=== PATIENT | male | born 1985 | race Caucasian/White ===

== ENCOUNTER 2017-01-10 12:20 | Emergency (ER) | payer BC ==
[2017-01-10 12:37] VITALS: RESP 14; TEMP 96.8
[2017-01-10] MEDS ORDERED: IPRATROPIUM/ALBUTEROL SULFATE 3 ML NEB NEB ONE (12:48)
--- NOTE | 2017-01-10 14:27 | DI ---
PA /LATERAL CHEST X-RAY, 01/10/2017 12:48 PM : Clinical History: Cough. Wheezing. Previous Exam: None at this facility. There is no acute soft tissue or bony abnormality. Heart size is normal. Lungs are clear. Mediastinal structures are normal. There are no pulmonary nodules. Reading: Normal chest x-ray.
--- NOTE | 2017-01-10 20:18 | PDOC ---
Upper Respiratory HPI - General Chief Complaint: Cough / URI Stated Complaint: cough, easily winded, wheezing x7 days Date Seen by Provider: 01/10/17 Time Seen by Provider: 12:25 Source: POSITIVE: Patient Exam Limitations: POSITIVE: No limitations Nurse's Notes Reviewed & Considered: Yes - History of Present Illness Initial Comments: The patient is a 31-year-old male. He presents to the emergency room complaining of an 8 day history of cough with some wheezing. He states his symptoms have been worse for the past 4-5 days. No known fevers or chills. Cough is productive of yellowish mucoid sputum. Patient chews tobacco but does not smoke tobacco. No chest pain. Some dyspnea with exertion. Timing: REPORTS: Constant Duration: >1 week (8 days) Severity: Moderate Quality: REPORTS: Other (No pain anywhere) Context: DENIES: Recent Foreign Travel, Insect Bite, Tick Bite, Multiple Pt's w / Same Sx, Recent Chemotherapy, Other Modifying Factors: improves with: Coughing Associated Symptoms: REPORTS: Cough, Productive Cough (Productive of mucoid sputum), Shortness of Breath (Some wheezing). DENIES: Fever, Chills, Sweating, Earache, Runny Nose, Sinus Pain, Sinus Drainage, Sore Throat, Hoarseness, Allergy, Hay Fever, Chest Pain, Bloody Cough, Hurts to Breathe, Headache, Other Similar Symptoms Previously: No Recently seen/treated/hospitalized: No Any Prior Injuries Related to Current Complaint?: No - Patient Home Medications Home Medications: Home Medications Albuterol 17 gm IH Q4H PRN #1 aer.refill 01/10/17 Azithromycin 250 mg PO DAILY #6 tab 01/10/17 - Patient Allergies Allergies/Adverse Reactions: Allergies Allergy/AdvReac Type Severity Reaction Status Date / Time No Known Drug Allergies Allergy NOT Verified 01/10/17 12:29 APPLICABLE Past Medical History - heen HEENT History: Denies History Cardiovascular History: Denies History Respiratory History: Denies History Gastrointestinal History: Denies History Genitourinary History: Denies History Endocrine History: Denies History Musculoskeletal History: Denies History Neurological History: Denies History Blood Disorders: Denies History Psychiatric History: Denies History History of Sexually Transmitted Diseases: No Male Reproductive History: Denies History Cancer History: Denies History In Past Year Been Physically Harmed or Verbally Threatened: No History of MDRO: No History of Other Communicable Diseases: No Tobacco Use: Never Smoker Alcohol Use: None Substance Use Type: None Previous Surgical History: No Significant Family History: No pertinent family hx Past Medical History Reviewed: Reviewed - No Changes ROS - Limitations ROS Limitations: No Limitations Constitution: REPORTS: Denies Symptoms Cardiovascular: REPORTS: Denies Cardiac Symptoms Respiratory: REPORTS: Cough Productive, Wheezing Neurological: REPORTS: Denies Neuro Symptoms Gastrointestinal: REPORTS: Denies GI Symptoms Endocrine: REPORTS: Denies Symptoms Musculoskeletal: REPORTS: Denies MS Symptoms Genitourinary: REPORTS: Denies Symptoms Eyes: REPORTS: Denies Symptoms ENT: REPORTS: Denies Symptoms Skin: REPORTS: Denies Skin Symptoms Lympathic: REPORTS: Denies Lympathic Symptoms Immunologic: POSITIVE: Denies Symptoms Psychiatric: POSITIVE: Denies Psych Symptoms Upper Respiratory/Fever Exam - General Appearance General Appearance: REPORTS: Alert, Cooperative, No Acute Distress, No Evidence of Trauma - HEENT HEENT: POSITIVE: Head Inspection Nml, Eyes Inspection Nml, Ears Inspection Nml, Nose Inspection Nml, Oral/Dental Inspect. Nml, Pharynx Inspect. Nml, PERRL, EOMI - Neck Neck: REPORTS: Normal Inspection, Supple - Respiratory Respiratory: REPORTS: No Respiratory Distress, Speaks Full Sentences, Wheezes, Rhonchi. DENIES: Breath Sounds Normal, No Pleuritic Chest Pain, No Pain on Inspiration, Respiratory Distress, Fatigue, Rales, Prolonged Expirations, Accessory Muscle Use, Retractions, Splinting, Dull on Percussion, Decreased Air Movement, Chest Wall Tenderness, Speaks Broken Sentences, Stridor, Respiratory Failure - Abdomen Abdomen: Soft: (All Quadrants), Normal Bowel Sounds: (All Quadrants), Denies Tenderness: (All Quadrants), No Splenomegaly: (All Quadrants), No Hepatomegaly: (All Quadrants), No Guarding: (All Quadrants), No Rebound: (All Quadrants), No Palpable Pulse: (All Quadrants), No Palpabale Mass: (All Quadrants), No Distention: (All Quadrants), No Rigidity: (All Quadrants) - Cardiovascular Cardiovascular: REPORTS: Regular Rate and Rhythm, Heart Sounds Normal, Equal Pulses, Strong Pulses, No Murmur, No Gallop, No Friction Rub, No JVD Peripheral Pulses: Radial (R): 2+, Radial (L): 2+ - Skin Skin: REPORTS: Intact, Normal For Race, Warm, Dry, No Rash - Extremities Extremity: Non-Tender: (All Extremities), Normal ROM: (All Extremities), Normal Inspection: (All Extremities) - Neurological / Psychological Neurological: POSITIVE: Oriented X3, information and data architect analyst Normal As Tested, Motor Normal, Sensation Normal, 5, 6 Upper Resp/Fever Progress - Results Reviewed by me Xrays/CTs/US Reviewed by me: Yes Discussed with Radiologist: Yes Radiology Findings: Chest x-ray normal - Patient's Progress Pain Medication Addressed: POSITIVE: Not Applicable School/Work Release Addressed: POSITIVE: Not Applicable Re-Examine Time: 13:25 Re-Examine Comment: Good clearing of wheezing with albuterol nebulizer treatment. Status: POSITIVE: Improved, Re-Examined Air Movement: Good Antibiotics Given: Yes (Zithromax) Nebulizer Treatment Given:: Yes (DuoNeb) - Consult RX Given: Yes (Z-Nate, albuterol inhaler) Patient Care Time - Estimated PCT Patient Care Time (In Minutes): 25 Vital Signs - Recent Vital Signs Vital Signs: Vital Signs (Last 8 hours) Temp Pulse Resp BP Pulse Ox 01/10/17 12:20 96.8 F 66 14 134/99 97 - VS Reviewed Vital Signs Reviewed: Yes Discharge Clinical Impression: Asthmatic bronchitis Discharge Disposition: Discharged to Home Condition: Stable Prescriptions / Orders: Albuterol 17 gm IH Q4H PRN #1 aer.refill PRN Reason: Wheezing Azithromycin 250 mg PO DAILY #6 tab Patient Instructions Given at Discharge: Acute Bronchitis (ED), Reactive Airways Disease (ED) Additional Instructions: I believe you have bronchitis with bronchospasm, a condition frequently termed asthmatic bronchitis. Take azithromycin, 2 tablets today and then 1 tablet daily for 4 days thereafter. Albuterol inhaler, 2 puffs every 4 hours as necessary for chest tightness or wheezing. Discontinue the use of all tobacco products. Work excuse for 2 days. Follow-up with your primary care provider. Return here anytime if condition worsens in any way. Follow Up With: NONE,NONE [Primary Care Provider] - (Instructions as above. Follow-up with your primary care provider. Return here anytime if condition worsens in any way.)
== END 2017-01-10 13:39 | disposition home or self-care (01) ==
LOC: ER 12:20
DX: J45.901 Unspecified asthma with (acute) exacerbation (principal); R05 Cough
CPT/HCPCS: 71020; 94640; 99283 ×2; J7620